=== PATIENT | female | born 1945 ===

== ENCOUNTER → 2017-12-25 08:00 | Outpatient (CLI) | payer OTHER ==
[~2017-12-25] VITALS: Ht 149.9 cm; Wt 49.0 kg
[~2017-12-25 08:00] MED LIST: ASA81 MG PO; COZAAR50 MG PO; ETODOLAC500 M1 PO; GABAPENTIN600 MG PO; IBANDRONATE SO150 MG PO; LASIX20 MG PO; OMEPRAZOLE40 MG PO; SIMVASTATIN40 MG PO; TENORMIN50 M1 PO
== END | disposition home or self-care (01) ==
LOC: LAB 08:00 → EDBD 12-27 10:15 → EDSTATUS 12-27 10:15 → SURH 12-27 10:15
DX: M54.5 Low back pain (principal); M48.07 Spinal stenosis, lumbosacral region; Z01.812 Encounter for preprocedural laboratory examination